=== PATIENT | male | born 1930 | race Caucasian/White ===

== ENCOUNTER 2018-05-22 13:29 | Inpatient (IN) | payer OTHER ==
[~2018-05-22] VITALS: Ht 160 cm; Wt 69.8 kg
[~2018-05-22 13:29] MED LIST: ACULAR PF0.5%; BET80 PO; CALCIUM + D1 TA1 PO; CALCIUM1 CAP PO; CLINDAMYCIN HC300 MG PO; FOL1 PO; FOLIC ACID PO; FOLIC ACID1 MG PO; FOSAMAX PO; LAC PO; LEVAQUIN750 MG PO; LOVAZA1 G1 PO; METHOTREXATE2.5 M2; METHOTREXATE2.5 PO; OLANZAPINE20 M1 PO; OMEGA-31 CAP PO; OMEGA-31000 M1 PO; PHOSLO667 MG PO; PRADAXA150 MG PO; PRADAXA75 MG PO; PRE5 PO; PREDNISONE5 MG PO; PREOS; PRI20 PO; PRODAXA PO; XARELTO20 M1 GT
[2018-05-22 14:23] LABS: BASOPHIL % 0.3 % (0-2); PLATELET COUNT 146 x10^3mcL (130-400)
[2018-05-22 14:31] LABS: microscopic required? NO
[2018-05-22] MEDS ORDERED: AMLODIPINE BES2.5 M1 PO (14:31)
[2018-05-22] MEDS ORDERED: TOPROL XL25 MG PO (14:31)
[2018-05-22] MEDS ORDERED: GLUCOSAMINE1000 MG PO (14:32)
[2018-05-22] MEDS ORDERED: MULTI-VITAMINS1 TAB (14:32)
[2018-05-22] MEDS ORDERED: COQ-1030 MG (14:32)
[2018-05-22] MEDS ORDERED: VITAMIN C60 MG (14:32)
[2018-05-22 14:34] LABS: RED CELL DISTRIBUTION WIDTH 15.2 % (11.5-14.5)
[2018-05-22 14:45] LABS: urine erythrocyte NEGATIVE (NEGATIVE)
[2018-05-22 15:27] LABS: CALCIUM 8.4 mg/dL (8.5-10.1); CARBON DIOXIDE 27.5 mmol/L (21-32); CHLORIDE SERUM 99 mmol/L (98-107); CREATININE SERUM 1.2 mg/dL (0.7-1.3); GLUCOSE SERUM 172 mg/dL (74-106); SODIUM SERUM 131 mmol/L (136-145)
[2018-05-22 15:39] LABS: ALBUMIN 3.6 g/dL (3.4-5.0); ALKALINE PHOSPHATASE 80 U/L (46-116); ALT/SGPT 38 U/L (16-63); AMYLASE 100 U/L (25-115); AST/SGOT 31 U/L (15-37); BILIRUBIN TOTAL 0.4 mg/dL (0.20-1.00); CHOLESTEROL 180 mg/dL (<200); HDL CHOLESTEROL 53 mg/dL (40-60); LIPASE 230 IU/L (73-393); MAGNESIUM 2.2 mg/dL (1.8-2.4); TOTAL PROTEIN, SERUM 7.5 g/dL (6.4-8.2)
[2018-05-22 16:22] LABS: PHOSPHOROUS 3.4 mg/dL (2.5-4.9)
[2018-05-22 16:30] LABS: FREE T4 1.05 ng/dL (0.76-1.46); FREE THYROXINE INDEX 2.3 ug/dL (1.4-4.5); T4(THYROXINE) 6.4 ug/dL (4.7-13.3)
[2018-05-22] MEDS ORDERED: XARELTO10 M1 PO (16:40)
[2018-05-22 16:52] VITALS: BP 144/90
[2018-05-22 19:07] LABS: CHOLESTEROL/HDL RATIO 3.5
[2018-05-22 19:49] LABS: AMPHETAMINE QUAL UR NONE DETECTED (See below)
[2018-05-22 19:51] LABS: T3 TOTAL 0.94 ng/mL
[2018-05-22 20:54] VITALS: BP 126/76
[2018-05-22 23:04] VITALS: BP 130/69
[2018-05-23 05:19] VITALS: BP 152/75
[2018-05-23 05:23] LABS: BASOPHIL % 0.3 % (0-2); PLATELET COUNT 153 x10^3mcL (130-400)
[2018-05-23 05:28] LABS: CALCIUM 9.2 mg/dL (8.5-10.1); CARBON DIOXIDE 28.7 mmol/L (21-32); CHLORIDE SERUM 101 mmol/L (98-107); CREATININE SERUM 1.6 mg/dL (0.7-1.3); GLUCOSE SERUM 154 mg/dL (74-106); POTASSIUM SERUM 4.6 mmol/L (3.5-5.1); SODIUM SERUM 139 mmol/L (136-145)
[2018-05-23 05:30] LABS: RED CELL DISTRIBUTION WIDTH 14.9 % (11.5-14.5)
[2018-05-23 10:07] VITALS: BP 144/88
[2018-05-23 13:37] VITALS: BP 136/65
[2018-05-23 16:46] VITALS: BP 127/63
[2018-05-23 20:04] VITALS: BP 131/92
[2018-05-24 05:12] VITALS: BP 112/64
[2018-05-24 07:16] LABS: CALCIUM 8.5 mg/dL (8.5-10.1); CARBON DIOXIDE 27.4 mmol/L (21-32); CHLORIDE SERUM 100 mmol/L (98-107); CREATININE SERUM 1.2 mg/dL (0.7-1.3); GLUCOSE SERUM 145 mg/dL (74-106); MAGNESIUM 2.4 mg/dL (1.8-2.4); PHOSPHOROUS 4.5 mg/dL (2.5-4.9); POTASSIUM SERUM 4.8 mmol/L (3.5-5.1); SODIUM SERUM 135 mmol/L (136-145)
[2018-05-24 07:20] LABS: BASOPHIL % 0.2 % (0-2); PLATELET COUNT 151 x10^3mcL (130-400)
[2018-05-24 07:23] LABS: RED CELL DISTRIBUTION WIDTH 15.1 % (11.5-14.5)
[2018-05-24 08:51] VITALS: BP 121/69
[2018-05-24 12:46] VITALS: BP 99/54
[2018-05-24 18:44] VITALS: BP 119/66
[2018-05-24 21:41] VITALS: BP 102/56
[2018-05-25 05:58] VITALS: BP 109/67
[2018-05-25 07:47] VITALS: Ht 160 cm; Wt 69.8 kg
[2018-05-25 10:11] VITALS: BP 112/54
[2018-05-25 12:21] VITALS: BP 112/54
[2018-05-25 14:56] VITALS: BP 104/59
[2018-05-25 17:33] VITALS: BP 108/74
[2018-05-25] MEDS ORDERED: AMLODIPINE BES2.5 M1 PO (18:02)
[2018-05-25] MEDS ORDERED: NATURE'S BLEND F1 MG PO (18:02)
[2018-05-25] MEDS ORDERED: BACO TOP (18:05)
[2018-05-25] MEDS ORDERED: APLICARE ANTIS118 M3 TOP (18:05)
[2018-05-25] MEDS ORDERED: AUGMENTIN 875-1 EACH PO (18:10)
[2018-05-25] MEDS ORDERED: BD LACTINEX1.4 MG PO (18:10)
[2018-05-25] MEDS ORDERED: TOPROL XL25 MG PO (18:28)
[2018-05-25 19:25] VITALS: BP 108/74
== END 2018-05-25 20:10 | disposition home health service (06) | DRG 291 ==
LOC: ED 13:29 → DU 15:35
PROVIDERS: Emergency Medicine; Family Medicine; Internal Medicine
DX: I11.0 Hypertensive heart disease with heart failure (principal); J96.01 Acute respiratory failure with hypoxia; N17.0 Acute kidney failure with tubular necrosis; J44.1 Chronic obstructive pulmonary disease with (acute) exacerbation; E87.1 Hypo-osmolality and hyponatremia; I50.43 Acute on chronic combined systolic (congestive) and diastolic (congestive) heart failure; I48.91 Unspecified atrial fibrillation; E78.2 Mixed hyperlipidemia; M06.9 Rheumatoid arthritis, unspecified; M16.11 Unilateral primary osteoarthritis, right hip; K21.9 Gastro-esophageal reflux disease without esophagitis; Z68.27 Body mass index [BMI] 27.0-27.9, adult; Z87.891 Personal history of nicotine dependence
CPT/HCPCS: 36600; 83880; 84439; 97110-GP; 97116-GP; 97530-GP; J0696; J1885; J1940; J1956; J2920; J3490; J7030; J7620; J7626; Q0092

== ENCOUNTER 2018-05-31 14:22 | Emergency (ER) | payer OTHER ==
[~2018-05-31] VITALS: Ht 170.2 cm; Wt 90.7 kg
[~2018-05-31 14:22] MED LIST changes: +AMLODIPINE BES2.5 M1 PO; +APLICARE ANTIS118 M3 TOP; +AUGMENTIN 875-1 EACH PO; +BACO TOP; +BD LACTINEX1.4 MG PO; +COQ-1030 MG; +GLUCOSAMINE1000 MG PO; +MULTI-VITAMINS1 TAB; +NATURE'S BLEND F1 MG PO; +TOPROL XL25 MG PO; +VITAMIN C60 MG; +XARELTO10 M1 PO
[2018-05-31 14:25] VITALS: Ht 170.2 cm; Wt 90.7 kg
[2018-05-31 15:41] LABS: BASOPHIL % 0.4 % (0-2); PLATELET COUNT 139 x10^3mcL (130-400)
[2018-05-31 15:48] LABS: CALCIUM 8.4 mg/dL (8.5-10.1); CARBON DIOXIDE 25.6 mmol/L (21-32); CHLORIDE SERUM 102 mmol/L (98-107); CREATININE SERUM 1.1 mg/dL (0.7-1.3); GLUCOSE SERUM 148 mg/dL (74-106); POTASSIUM SERUM 4.9 mmol/L (3.5-5.1); SODIUM SERUM 136 mmol/L (136-145)
[2018-05-31 15:54] LABS: ALBUMIN 3.2 g/dL (3.4-5.0); ALKALINE PHOSPHATASE 73 U/L (46-116); ALT/SGPT 46 U/L (16-63); AST/SGOT 35 U/L (15-37); MAGNESIUM 2.1 mg/dL (1.8-2.4); TOTAL PROTEIN, SERUM 6.8 g/dL (6.4-8.2)
[2018-05-31 19:55] VITALS: BP 153/79
== END 2018-05-31 19:55 | disposition home or self-care (01) ==
LOC: ED 14:22 → CANBEDREQ 16:56 → ED 19:55
PROVIDERS: Emergency Medicine
DX: T67.5XXA Heat exhaustion, unspecified, initial encounter (principal); R55 Syncope and collapse; I10 Essential (primary) hypertension; K21.9 Gastro-esophageal reflux disease without esophagitis; Z88.5 Allergy status to narcotic agent; Z88.2 Allergy status to sulfonamides; X58.XXXA Exposure to other specified factors, initial encounter; Y93.89 Activity, other specified; Y92.22 Religious institution as the place of occurrence of the external cause; Y99.8 Other external cause status
CPT/HCPCS: 83880; J2765; J7030; Q0092

== ENCOUNTER 2019-03-17 12:06 | Inpatient (IN) | payer OTHER ==
[~2019-03-17] VITALS: Ht 160 cm; Wt 69.4 kg
[2019-03-17] MEDS ORDERED: NATURE'S BLEND F1 MG PO (12:19)
[2019-03-17] MEDS ORDERED: METOPROLOL TART25 M1 PO (12:19)
[2019-03-17] MEDS ORDERED: PREDNISONE2.5 MG PO (12:19)
[2019-03-17] MEDS ORDERED: GOOD SENSE OMEP20 MG PO (12:19)
[2019-03-17] MEDS ORDERED: XARELTO10 M1 PO (12:20)
[2019-03-17] MEDS ORDERED: REMICADE100 MG (12:20)
--- NOTE | 2019-03-17 12:21 | NUR ---
EKG IN PROGRESS
--- NOTE | 2019-03-17 13:17 | NUR ---
MSE COMPLTED BY DR SNOW. LAB AT BEDSIDE. BREATHING TX IN PROGRESS
[2019-03-17 14:23] LABS: BASOPHIL % 0.4 % (0-2); PLATELET COUNT 114 x10^3mcL (130-400); RED CELL DISTRIBUTION WIDTH 14.9 % (11.5-14.5)
[2019-03-17 14:25] LABS: CALCIUM 8.7 mg/dL (8.5-10.1); CARBON DIOXIDE 27.2 mmol/L (21-32); CHLORIDE SERUM 101 mmol/L (98-107); GLUCOSE SERUM 100 mg/dL (74-106); POTASSIUM SERUM 4.3 mmol/L (3.5-5.1); SODIUM SERUM 135 mmol/L (136-145)
[2019-03-17 14:30] LABS: ALBUMIN 3.4 g/dL (3.4-5.0); ALKALINE PHOSPHATASE 93 U/L (46-116); ALT/SGPT 29 U/L (16-63); AST/SGOT 30 U/L (15-37); BILIRUBIN TOTAL 0.6 mg/dL (0.20-1.00); TOTAL PROTEIN, SERUM 7.4 g/dL (6.4-8.2)
[2019-03-17 14:31] LABS: microscopic required? NO
[2019-03-17 14:46] LABS: urine erythrocyte NEGATIVE (NEGATIVE)
--- NOTE | 2019-03-17 15:17 | NUR ---
PT RESTING COMFORTABLY NO DISTRESS VSS REMAINS AT BEDSIDE POC DISCUSSED WITH PT AND BY DR SNOW. AWAITING FURTHER ORDERS
--- NOTE | 2019-03-17 15:42 | NUR ---
PT LYNDSEY, DR SNOW NOTIFIED OK TO ORDER CARDIAC DIET FOOD TRAY. PT AND MADE AWARE
--- NOTE | 2019-03-17 17:16 | NUR ---
FOOD TRAY GIVEN TO PT AT BEDSIDE, PRIMARY NURSE MARLENA NOTIFIED
--- NOTE | 2019-03-17 17:43 | NUR ---
PT ATE 100% OF HIS DINNER WITH NO PROBLEM
--- NOTE | 2019-03-17 17:49 | NUR ---
REPORT GIVEN TO QUINCY GALVAN RESUMING CARE OF PT IN TELE FLOOR
--- NOTE | 2019-03-17 18:02 | NUR ---
PT TO TELE FLOOR VIA GURMARCO ON PORTABLE CM NO DISTRESS ACCOMPANYING PT. QUINCY GALVAN RESUMING CARE OF PT.
[2019-03-17 18:20] VITALS: BP 124/100
--- NOTE | 2019-03-17 18:25 | NUR ---
REC PT VIA GURNEY FROM E.R. AMHAR[facility] AND FARO[facility] SPK WITH BY HIS SIDE. AA/O X4 BREATHING EVEN AND UNLABORED ON RA 95% SATING. NO ACUTE RESP DISTRESS NOTED. LUNGS DIM BLL AND WHEEZING UPPER LOBES. TELE 6 AFIB NOTED, HR 84 DENIES ANY CP OR PRESSURE. PULSES PRESENT BLE, BOWEL SOUNDS ACTIVE IN ALL FOUR QUADS. VOIDS FREELY. INCONT AT TIMES / URINAL AT BEDSIDE. AMB WITH ASSIST. WALKER AT BEDSIDE. SKIN INTACT AND PATENT/ WARM TO TOUCH. IV TO THE LFA INTACT AND PATENT, 20 G / LEVAQUIN INFUSING AT THIS TIME/ BROUGHT UP FROM E.R.. CALL LIGHT IN REACH. BED IN LOW POSITION. BY HIS SIDE.
--- NOTE | 2019-03-17 18:49 | NUR ---
WILL ENDORSE TO INCOMING RN. NO ACUTE RESP DISTRESS OR SOB NOTED. DENIES ANY CP OR PRESSURE. CALL LIGHT IN REACH. BED IN LOW POSITION. BY HIS SIDE.
[2019-03-17 19:00] VITALS: BP 124/100
[2019-03-17 19:09] VITALS: Ht 160 cm; Wt 69.4 kg
[2019-03-17 19:26] LABS: CHOLESTEROL/HDL RATIO 3.4; MAGNESIUM 2.4 mg/dL (1.8-2.4); PHOSPHOROUS 2.3 mg/dL (2.5-4.9)
[2019-03-17 19:35] LABS: FREE T4 1.2 ng/dL (0.76-1.46); FREE THYROXINE INDEX 3.1 ug/dL (1.4-4.5); T4(THYROXINE) 7.4 ug/dL (4.7-13.3)
[2019-03-17 19:36] LABS: T3 TOTAL 0.98 ng/mL
--- NOTE | 2019-03-17 20:17 | NUR ---
PT CURRENTLY RESTING IN BED, NO ACUTE DISTRESS. A/O X4. TELE #6 SHOWING AFIB, DENIES CHEST PAIN. PULSES PALPABLE IN ALL EXTREMITIES, NO EDEMA NOTED. LUNG SOUNDS DIMINISHED AND WHEEZING BILATERALLY, DENIES SOB, COUGH NOTED. BOWEL SOUNDS ACTIVE, LAST BM 03/16/19. VOIDING WELL. GENERALIZED WEAKNESS, AMBULATORY WITH ASSIST. SKIN INTACT. IV PATENT AND INTACT. BED IN LOWEST POSITION, SIDE RAILS UP X2, CALL LIGHT WITHIN REACH. WILL CONTINUE TO MONITOR.
[2019-03-17 21:15] VITALS: BP 126/74
--- NOTE | 2019-03-18 00:49 | NUR ---
PT CURRENTLY RESTING IN BED, NO ACUTE DISTRESS. WILL CONTINUE TO MONITOR.
--- NOTE | 2019-03-18 06:14 | NUR ---
PT SLEPT PERIODICALLY THROUGHOUT NIGHT, NO ACUTE DISTRESS. ALL NEEDS MET AND ATTENDED TO. NO SIGNIFICANT CHANGES. IV PATENT AND INTACT. BED IN LOWEST POSITION, SIDE RAILS UP X2, CALL LIGHT WITHIN REACH. WILL ENDORSE CARE TO ONCOMING NURSE.
[2019-03-18 06:19] LABS: BASOPHIL % 0.1 % (0-2)
[2019-03-18 06:27] LABS: CALCIUM 8.3 mg/dL (8.5-10.1); CARBON DIOXIDE 23.2 mmol/L (21-32); CHLORIDE SERUM 105 mmol/L (98-107); CREATININE SERUM 1.1 mg/dL (0.7-1.3); GLUCOSE SERUM 160 mg/dL (74-106); POTASSIUM SERUM 4.9 mmol/L (3.5-5.1); SODIUM SERUM 139 mmol/L (136-145)
[2019-03-18 06:28] VITALS: BP 144/84
[2019-03-18 06:52] LABS: PLATELET COUNT 115 x10^3mcL (130-400)
[2019-03-18 08:59] VITALS: BP 117/57
--- NOTE | 2019-03-18 09:14 | NUR ---
AM SCHEDULED MEDS GIVEN. TOLERATED BREAKFAST WELL. DENIES CHEST PAIN. ON THE PHONE TALKING TO HIS DAUGHTER, NO ANY DISTRESS NOTED. NOTED WITH OCCATIONAL COUGH, MUCINEX PO GIVEN.
--- NOTE | 2019-03-18 10:00 | NUR ---
ASSISTED TO BSC WITH ONE HYDROGENATION OPERATOR, HAD LARGE SOFT BM, ASSISTED BACK BY PARKS AND RECREATION WORKER.
--- NOTE | 2019-03-18 10:37 | NUR ---
SEEN WALKING IN ROOM USING WALKER ASSISTED BY PHYSICAL THERAPYSTS. NO ANY DISTRESS NOTED.
[2019-03-18 12:46] VITALS: BP 108/58
[2019-03-18 17:47] VITALS: BP 98/57
[2019-03-18 19:15] VITALS: BP 100/63
--- NOTE | 2019-03-18 19:15 | NUR ---
RECEIVED PT AWAKE ALERT AND VERBALLY RESPONSIVE.BREATHING EASY AND NON-LABORED WITH ON AND OFF COUGHING.NO SOB/CONGESTION NOTED.TOLERATING ROOMAIR @ 95%.DENIES CHESTPAIN.BP 100/63 MMHG,HR 94.WILL CONTINUE TO MONITOR.
--- NOTE | 2019-03-19 04:40 | NUR ---
PT SLEPT WELL ALL NIGHT.NO SYNCOPAL EPISODES NOTED.BREATHING EASY AND NON-LABORED.ON RT PROTOCOL.ON CONTACT ISOLATION FOR HX MRSA NARES.GOODHANDWASHING TECHNIQUE OBSERVED.ALL NEEDS MET.WILL CONTINUE TO MONITOR.
[2019-03-19 06:00] VITALS: BP 127/77
[2019-03-19 07:03] VITALS: BP 120/75
--- NOTE | 2019-03-19 07:05 | NUR ---
RECEIVED BEDSIDE REPORT FROM DIRECTOR CORPORATE SALES NURSE AT THIS TIME. PATIENT RESTING COMFORTABLY IN BED. NO APPARENT DISTRESS OR DISCOMFORT NOTED. BREATHING EVEN AND UNLABORED. NO RESPIRATORY DISTRESS NOTED. NO INDICATION OF CHEST PAIN AT THIS TIME. IV PATENT AND INTACT. ALL QUESTIONS AND CONCERNS ADDRESSED. ALL NEEDS ATTENDED TO. WILL CONTINUE TO MONITOR
[2019-03-19 08:01] LABS: BASOPHIL % 0.3 % (0-2)
[2019-03-19 08:04] LABS: PLATELET COUNT 124 x10^3mcL (130-400); RED CELL DISTRIBUTION WIDTH 15.1 % (11.5-14.5)
[2019-03-19 08:25] LABS: CALCIUM 8.2 mg/dL (8.5-10.1); CARBON DIOXIDE 23.6 mmol/L (21-32); CHLORIDE SERUM 105 mmol/L (98-107); CREATININE SERUM 1.1 mg/dL (0.7-1.3); GLUCOSE SERUM 148 mg/dL (74-106); POTASSIUM SERUM 4.8 mmol/L (3.5-5.1); SODIUM SERUM 139 mmol/L (136-145)
--- NOTE | 2019-03-19 10:00 | NUR ---
MORNING MEDICATIONS ADMINISTERED. PATIENT TOLERATED WELL. NO ADVERSE EFFECTS NOTED. NO APPARENT DISTRSES OR DISCOMFORT NOTED ALL NEEDS ATTENDED TO. WILL CONTINUE TO MONITOR
[2019-03-19 12:05] VITALS: BP 115/60
--- NOTE | 2019-03-19 12:48 | NUR ---
PATIENT SITTING UP IN CHAIR EATING LUNCH AT THIS TIME. PATIENT TOLERATING DIET WELL. NO APPARENT DISTRESS OR DISCOMFORT NOTED. ALL NEEDS ATTENDED TO. WILL CONTINUE TO MONITOR
[2019-03-19 15:08] VITALS: BP 117/71
--- NOTE | 2019-03-19 15:32 | NUR ---
PATIENT C/O LEFT HIP/BUTTOCK PAIN AT THIS TIME. PATIENT MEDICATED WITH PERCOCET PO. PATIENT TOLERATED WELL. NO ADVERSE EFFECTS NOTED. NO APPARENT DISTRESS OR DISCOMFORT NOTED. WILL CONTINUE TO MONITOR
--- NOTE | 2019-03-19 15:35 | NUR ---
PHYSICAL THERAPY DAILY NOTES CO-SIGN All documentation done by the Bridge Welder for 03/19/19 has been reviewed. I agree with the documentation. Reviewed/Co-Signed by: Alesha Pleitez PT Documentation Done by:BARBARA MORTENSEN PTA
--- NOTE | 2019-03-19 18:00 | NUR ---
PATIENT SITTING UP ON SIDE OF BED EATING DINNER AT THIS TIME. PATIENT TOLERATING DIET WELL. NO APPARENT DISTRESS OR DISCOMFORT NOTED. ALL NEEDS ATTENDED TO. WILL CONTINUE TO MONITOR
--- NOTE | 2019-03-19 19:20 | NUR ---
REPORT RECEIVED FROM DAY SHIFT RN. PATIENT WAS SEEN AND IS RESTING COMFORTBALY IN BED. BREATHING EVEN ON ROOM AIR. NO SOB OR DISTRESS NOTED. PATIENT MADE COMFORTBALY IN BED. DENIES CHEST PAIN. NO C/O PAIN. IV TO THE LFA. SALINE LOCK. PATENT AND INTACT. NO REDNESS OR SWELLING NOTED. COMFORT AND SAFETY MEASURES MAINTAINED. BED IS LOCKED AND IN THE LOWEST POSITION. SIDE RAILS UP X2. CALL LIGHT IS WITHIN REACH. WILL CONTINUE TO MONITOR.
--- NOTE | 2019-03-19 19:31 | NUR ---
PATIENT RESTING COMFORTABLY IN BED AT THIS TIME. NO APPARENT DISTRESS OR DISCOMFORT NOTED. IV PATENT AND INTACT. ALL QUESTIONS AND CONCERNS ADDRESSED. SAFETY PRECAUTIONS MAINTAINED. ALL NEEDS ATTENDED TO. ENDORSED ALL CARE TO COAT JOINER NURSE
[2019-03-19 20:49] VITALS: BP 148/72
--- NOTE | 2019-03-20 02:58 | NUR ---
PATIENT IS RESTING IN BED COMFORTBALY WITH EYES CLOSED AT THIS TIME. NO DISTRESS NOTED. BREATHING EVEN ON ROOM AIR. CALL LIGHT IS WITHIN REACH. WILL CONTINUE TO MONITOR.
--- NOTE | 2019-03-20 05:20 | NUR ---
PATIENT SLEPT IN LONG INTERVALS THROUGHOUT THE NIGHT. NO ACUTE/SIGNIFICANT CHANGES NOTED. NO C/O PAIN THROUHGOUT THE NIGHT. DENIES CHEST PAIN. BREATHING EVEN ON ROOM AIR. NO RESP DISTRESS OR SOB NOTED. IV TO THE LFA, SL. PATENT AND INTACT. NO REDNESS OR SWELLING NOTED. ALL SAFETY AND COMFORT MEASURES MAINTAINED. CALL LIGHT IS WITHIN REACH. ALL NEEDS AND CONCERNS ADDRESSED. WILL ENDORSE CARE TO DAY SHIFT RN.
[2019-03-20 05:22] VITALS: BP 131/66
[2019-03-20 05:41] LABS: BASOPHIL % 0.2 % (0-2)
[2019-03-20 05:49] LABS: PLATELET COUNT 123 x10^3mcL (130-400); RED CELL DISTRIBUTION WIDTH 14.8 % (11.5-14.5)
[2019-03-20 06:52] LABS: CARBON DIOXIDE 23.1 mmol/L (21-32); CHLORIDE SERUM 104 mmol/L (98-107); CREATININE SERUM 1.1 mg/dL (0.7-1.3); GLUCOSE SERUM 140 mg/dL (74-106); POTASSIUM SERUM 4.6 mmol/L (3.5-5.1); SODIUM SERUM 137 mmol/L (136-145)
[2019-03-20 07:02] VITALS: BP 135/81
--- NOTE | 2019-03-20 07:41 | NUR ---
OX4. NO SOB AT RA. DENIES PAIN; TELE # [address] URINAL AND WALKER WITHIN REACH FOR USE; SL ON THE LFA. FALL AND SAFETY PRECAUTION REINFORCED. WILL CONTINUE TO MONITOR STATUS.
[2019-03-20] MEDS ORDERED: PREDNISONE20 MG PO (11:16)
[2019-03-20] MEDS ORDERED: MUCINEX600 MG PO (11:16)
[2019-03-20] MEDS ORDERED: LEVOFLOXACIN500 M1 PO (11:16)
--- NOTE | 2019-03-20 11:33 | NUR ---
PT AMBULATING IN THE HALLWAY WITH REHAB. NO SOB
[2019-03-20 12:07] VITALS: BP 117/73
[2019-03-20 15:23] VITALS: BP 117/73
--- NOTE | 2019-03-20 16:00 | NUR ---
ARBEN INFORMED ME THAT HER MOM WILL SIGN DESIGNER PT BUT MAY TAKE A WHILE BEC SHE HAS NO CAR;
[2019-03-20 16:14] VITALS: BP 128/79
--- NOTE | 2019-03-20 18:06 | NUR ---
NO NEW ACUTE CHANGES IN STATUS; STILL WAITING FOR THE FAMILY TO DC PT; SITTING AT BEDSIDE CHAIR; ON RM AIR THROUGHOUT THIS SHIFT. NO SOB.
--- NOTE | 2019-03-20 19:30 | NUR ---
RECEIVED REPORT FROM DAY SHIFT RN. PT SITTING ON THE CHAIR. NO SOB ON ROOM AIR. NO C/O PAIN. PT AWARE OF DISCHARGE PLAN. WAITING FOR TO TAKE PT HOME.
--- NOTE | 2019-03-20 21:05 | NUR ---
PT DISCHARGED TO HOME. TRANSPORTATION PROVIDED BY FAMILY. IV REMOVED, CATHETER INTACT. NO BLEEDING NOTED. TELE#6 REMOVED AND RETURNED TO THE MEND WORKER. NO C/O SOB ON ROOM AIR. NO C/O PAIN. NO DISTRESS NOTED. DISCHARGE PAPERS EXPLAINED TO THE PT, PT SIGNED AND GIVEN TO THE PT.
--- NOTE | 2019-03-22 16:44 | NUR ---
PHYSICAL THERAPY DAILY NOTES CO-SIGN All documentation done by the Manufacturing Quality Inspector for 03/22/19 has been reviewed. I agree with the documentation. Reviewed/Co-Signed by: Sahkir Lanza PT Documentation Done by:GIULIANA JENKINS OFFSHORING MANAGER FOR 03/20/2019
== END 2019-03-20 21:05 | disposition home or self-care (01) | DRG 190 ==
LOC: ED 12:06 → DU 17:13
PROVIDERS: Emergency Medicine; ADMIT Internal Medicine
DX: J44.1 Chronic obstructive pulmonary disease with (acute) exacerbation (principal); J96.00 Acute respiratory failure, unspecified whether with hypoxia or hypercapnia; E44.1 Mild protein-calorie malnutrition; E87.1 Hypo-osmolality and hyponatremia; I48.91 Unspecified atrial fibrillation; I10 Essential (primary) hypertension; R73.03 Prediabetes; K21.9 Gastro-esophageal reflux disease without esophagitis; Z66 Do not resuscitate; M19.90 Unspecified osteoarthritis, unspecified site; Z68.27 Body mass index [BMI] 27.0-27.9, adult; Z87.891 Personal history of nicotine dependence; Z79.01 Long term (current) use of anticoagulants; Z79.52 Long term (current) use of systemic steroids
CPT/HCPCS: 36600; 83880; 84439; 97110-GP; 97116-GP; 97530-GP; J1956; J2920; J2930; J7613; J7620; J7644; Q0092